=== PATIENT | female | born 1960 | race Two or more races ===

== ENCOUNTER → 2024-06-14 | Outpatient (CLI) | payer BC, SELFPAY ==
[2024-06-14 10:16] LABS: Basophils # (Auto) 0.1 Thou/mm3 (0.0-0.2); Basophils % (Auto) 1 % (0-2.5); Eosinophils # (Auto) 0.3 Thou/mm3 (0.0-0.5); Eosinophils % (Auto) 3 % (0-10); Hematocrit 36.5 % (36.0-46.0); Hemoglobin 11.9 g/dL (12.0-16.0); Immature Granulocytes % (Auto) 0 % (0-0); Immature Granulocytes Auto 0.03 Thou/mm3 (0.00-0.00); Lymphocytes # (Auto) 2.1 Thou/mm3 (1.0-4.8); Lymphocytes % (Auto) 21 % (10-50); Mean Corpuscular HGB Conc 32.6 g/dl (31.0-37.0); Mean Corpuscular Hemoglobin 31.1 pg (25.0-35.0); Mean Corpuscular Volume 95 fL (80-100); Monocytes # (Auto) 0.4 Thou/mm3 (0.0-0.8); Monocytes % (Auto) 4 % (0-12); Neutrophils # (Auto) 7.1 Thou/mm3 (1.8-7.7); Neutrophils % (Auto) 72 % (37-80); Nucleated Red Blood Cell % 0 /100 WBC (0); Platelet Count 318 Thou/mm3 (140-440); RDW Standard Deviation 43.5 fL (36.4-46.3); Red Blood Count 3.83 Miln/mm3 (4.00-5.20)
== END | disposition home or self-care (01) ==
LOC: COPL 08:58
PROVIDERS: PCP Nurse Practitioner Family; Referring Provider Nurse Practitioner Family; Visit Provider Nurse Practitioner Family
DX: R79.9 Abnormal finding of blood chemistry, unspecified (principal)
CPT/HCPCS: 36415; 85025

== ENCOUNTER 2024-07-24 09:20 | Day surgery (SDC) | payer BC, SELFPAY ==
[2024-07-23 13:58] VITALS: BMI 27.8
[2024-07-24] VITALS (8 sets, daily range): BP systolic 115–148; BP diastolic 67–85; PULSE 66–89; RESP 12–18; TEMP 36.4–36.8; O2SAT 94–100; BMI 27.6
[2024-07-24] MEDS: SODIUM CHLORIDE 0.9% 250 ML 250 ML 125 ML IV (11:52)
[2024-07-24] MEDS: DiphenhydrAMINE INJ 50 MG/ML VIAL 25 MG IV (11:56)
[2024-07-24] MEDS: MIDAZOLAM INJ 1 MG/ML VIAL 2 ML (ASD USE ONLY) 2 MG IV (11:58)
[2024-07-24] MEDS: fentaNYL CIT INJ 50 mCg/ML AMP 2ML (ASD USE ONLY) IV (11:58)
[2024-07-24] MEDS: ONDANSETRON INJ 2 MG/ML INJ 2 ML 4 MG IV (12:04)
--- NOTE | 2024-07-24 13:01 | SUR.PHASEII ---
1235 Pt more awake and alert. Denies pain, difficulty with swallowing or N/V. Abd remains soft. Maik PO fluids.
--- NOTE | 2024-07-24 13:18 | SUR.PHASEII ---
1315 Pt assessment unchanged. No complaints. Amb with steady gait. Able to dress self. Daughter just arrived. DC instructions given. Aware of new prescriptions phoned into [facility], by Dr Wynne. Both state understanding. Pt meets dc criteria-to home.
== END 2024-07-24 13:15 | disposition home or self-care (01) ==
PROVIDERS: PCP Nurse Practitioner Family; Referring Provider Specialist; Visit Provider Specialist
PROC: (CPT 43239; principal; 2024-07-24 10:30)
DX: K21.00 Gastro-esophageal reflux disease with esophagitis, without bleeding (principal); K29.70 Gastritis, unspecified, without bleeding; K29.50 Unspecified chronic gastritis without bleeding; B96.81 Helicobacter pylori [H. pylori] as the cause of diseases classified elsewhere; K31.89 Other diseases of stomach and duodenum
CPT/HCPCS: 43239; A4649; J1200; J2250; J2405; J3010; J7050

== ENCOUNTER → 2024-08-29 | Outpatient (BNVA) | payer BC, SELFPAY | END | disposition home or self-care (01) | PROVIDERS: PCP Nurse Practitioner Family; Referring Provider Nurse Practitioner Family; Visit Provider Urology | DX: R31.29 Other microscopic hematuria (principal); I10 Essential (primary) hypertension; J44.9 Chronic obstructive pulmonary disease, unspecified; F17.210 Nicotine dependence, cigarettes, uncomplicated; E78.00 Pure hypercholesterolemia, unspecified; K21.9 Gastro-esophageal reflux disease without esophagitis | CPT/HCPCS: 81003; 99202; 99212; G0463 ==

== ENCOUNTER → 2024-09-24 | Outpatient (CLI) | payer BC, SELFPAY ==
--- NOTE | 2024-09-24 15:00 | XR_ITS ---
Examination: Retroperitoneal ultrasound, complete Technique: Multiple high resolution grayscale images of the retroperitoneum obtained, including kidneys and bladder. Exam date and time:September 24, 2024 at 1454 hrs. Indications: Hematuria laboratory examination August 29, 2024 Findings: Right kidney 11.0 cm cortex 2.4 cm Left kidney 10.7 cm cortex 2.1 cm No renal calculi or solid renal mass lesion No bladder mass or bladder calculi Bladder prevoid volume 118 cc Impression: Negative examination
== END | disposition home or self-care (01) ==
PROVIDERS: PCP Urology; Referring Provider Urology; Visit Provider Urology
DX: R31.1 Benign essential microscopic hematuria (principal)
CPT/HCPCS: 76770

== ENCOUNTER → 2024-10-25 | Outpatient (BNVA) | payer BC, SELFPAY | END | disposition home or self-care (01) | PROVIDERS: PCP Nurse Practitioner Family; Referring Provider Nurse Practitioner Family; Visit Provider Urology | DX: D41.4 Neoplasm of uncertain behavior of bladder (principal); N35.92 Unspecified urethral stricture, female; N81.6 Rectocele; I10 Essential (primary) hypertension; E78.00 Pure hypercholesterolemia, unspecified; J44.9 Chronic obstructive pulmonary disease, unspecified; K21.9 Gastro-esophageal reflux disease without esophagitis | CPT/HCPCS: 52214; 81003; 96372; A4217; A4649; C1894; J1580; A9270 ==

== ENCOUNTER → 2024-11-05 | Outpatient (CLI) | payer BC, SELFPAY ==
[2024-11-05 17:59] LABS: Urea Breath Test Negative (Negative)
== END | disposition home or self-care (01) ==
LOC: COPL 14:27
PROVIDERS: PCP Nurse Practitioner Family; Referring Provider Specialist; Visit Provider Specialist
DX: Z01.89 Encounter for other specified special examinations (principal); B96.81 Helicobacter pylori [H. pylori] as the cause of diseases classified elsewhere
CPT/HCPCS: 83013; 83014

== ENCOUNTER → 2024-11-15 | Outpatient (CLI) | payer BC, SELFPAY ==
--- NOTE | 2024-11-15 16:33 | XR_ITS ---
Examination: Knee, left 2 views Technique: Knee AP, lateral, 2 views, standing Date and time of exam: November 15, 2024 1637 hours INDICATIONS: Knee pain several years. FINDINGS: Moderate narrowing medial joint space Mild osteoarthritis patellofemoral joint No fracture No foreign body IMPRESSION: Moderate narrowing medial joint space
== END | disposition home or self-care (01) ==
LOC: CDIM 16:27
PROVIDERS: PCP Nurse Practitioner Family; Referring Provider Orthopaedic Surgery; Visit Provider Orthopaedic Surgery
DX: M25.862 Other specified joint disorders, left knee (principal)
CPT/HCPCS: 73560

== ENCOUNTER → 2024-12-06 | Outpatient (CLI) | payer BC, SELFPAY ==
--- NOTE | 2024-12-06 09:17 | XR_ITS ---
Examination: Shoulder,left, 3 views Technique: Shoulder AP internal rotation, AP external rotation, Y view shoulder, 3 views Exam date and time :December 06, 2024 0920 hours INDICATIONS: Left shoulder pain beginning one week ago. FINDINGS: Moderate osteopenia. Mild narrowing glenohumeral joint No shoulder fracture or dislocation Mild shoulder calcific tendinitis IMPRESSION: No fracture Mild shoulder calcific tendinitis
== END | disposition home or self-care (01) ==
LOC: CDIM 09:11
PROVIDERS: PCP Family Medicine; Referring Provider Registered Nurse; Visit Provider Registered Nurse
DX: M75.32 Calcific tendinitis of left shoulder (principal)
CPT/HCPCS: 73030

== ENCOUNTER → 2024-12-23 | Outpatient (CLI) | payer BC, SELFPAY ==
--- NOTE | 2024-12-23 14:39 | XR_ITS ---
Examination: Cervical spine 4 views TECHNIQUE: AP, lateral, swimmer's lateral, AP odontoid cervical spine 4 views Date and time: December 23, 2024, 1449 hours INDICATIONS: Neck pain for years. FINDINGS: Reversal normal cervical lordosis. No cervical fracture. Moderate to advanced disc narrowing C4-C5, C5-C6 IMPRESSION: Moderate to advanced degenerative disc disease C4-C5, C5-C6
== END | disposition home or self-care (01) ==
PROVIDERS: PCP Nurse Practitioner Family; Referring Provider Nurse Practitioner Family; Visit Provider Nurse Practitioner Family
DX: M50.321 Other cervical disc degeneration at C4-C5 level (principal)
CPT/HCPCS: 72040